=== PATIENT | female | born 1985 | race Hispanic/Latino ===

== ENCOUNTER 2017-08-13 19:56 | Emergency (ER) | payer OTHER ==
[2017-08-13 20:02] VITALS: TEMP 98.9; O2SAT 100
[2017-08-13] MEDS ORDERED: Sodium Chloride 0.9% 1,000 ML IV STA (20:13)
--- NOTE | 2017-08-13 20:16 | ED PDOC ---
Syncope/Near Syncope/Dizziness Time Seen by Provider: 08/13/17 20:06 Chief Complaint (Nursing): Dizziness/Lightheaded History Per: Patient History/Exam Limitations: no limitations Current Symptoms Are (Timing): Better Activity At Onset Of Symptoms: Sitting Associated Symptoms Preceding Syncopal Episode: Lightheadedness Seizure Or Post-ictal Symptoms: None Additional Complaint(s): Patient is 28 weeks , states she was at work, had not drank any water all day, was feeling lightheaded, dizzy, and had shortness of breath, called another employee on the phone to assist her, patient states she doesn't remember hanging up the phone and when her co-worker found her, her head was down on the table and stated that she passed out for 10 seconds. Denies chest pain, states SOB is better compared to earlier. STates she feels "tired". No fevers or recent illnesses, states unremarkable but that she failed her glucose tolerance test. No abdominal pain currently, no vaginal bleeding or discharge. Past Medical History Reviewed: Historical Data, Nursing Documentation, Vital Signs Vital Signs: Last Vital Signs Temp 98.9 F 08/13/17 19:59 Pulse 101 H 08/13/17 19:59 Resp 16 08/13/17 19:59 BP 93/67 L 08/13/17 19:59 Pulse Ox 100 08/13/17 19:59 - Medical History PMH: No Chronic Diseases - Family History Family History: States: Unknown Family Hx - Allergies Allergies/Adverse Reactions: Allergies Allergy/AdvReac Type Severity Reaction Status Date / Time No Known Allergies Allergy Verified 08/13/17 20:02 Review of Systems ROS Statement: Except As Marked, All Systems Reviewed And Found Negative Respiratory: Positive for: Shortness of Breath Physical Exam - Reviewed Nursing Documentation Reviewed: Yes Vital Signs Reviewed: Yes - Physical Exam Appears: Positive for: Well, Non-toxic, No Acute Distress Head Exam: Positive for: ATRAUMATIC, NORMAL INSPECTION, NORMOCEPHALIC Skin: Positive for: Normal Color, Warm, DRY Eye Exam: Positive for: EOMI, Normal appearance, PERRL ENT: Positive for: Normal ENT Inspection Neck: Positive for: Normal, Painless ROM Cardiovascular/Chest: Positive for: Regular Rate, Rhythm Respiratory: Positive for: CNT, Normal Breath Sounds Gastrointestinal/Abdominal: Positive for: Normal Exam, Bowel Sounds, Soft, Other (Gravid uterus). Negative for: Tenderness Back: Positive for: Normal Inspection Extremity: Positive for: Normal ROM Neurologic/Psych: Positive for: Alert, Oriented - Laboratory Results Result Diagrams: 08/13/17 20:39 08/13/17 20:39 - ECG ECG Rhythm: Positive for: Normal QRS, Normal ST Segment, Sinus Rhythm O2 Sat by Pulse Oximetry: 100 Pulse Ox Interpretation: Normal Medical Decision Making Medical Decision MakinPM A/P: 28 wks with syncope -patient with mild hypotension and slight tachycardia, can be normal at this stage of preganancy, but given history of no water consumption today, patient likely dehydrated contributing to today's presentation -not concerned for PE -will check electrolytes, give IV bag -after re-eval, will send to L&D 945PM -Patient feeling better, vitals improved, tolerating PO -will treat for UTI, although asymptomatic -will send to L&D for further obstetric care Disposition - Clinical Impression Clinical Impression: Syncope - Disposition Referrals: Nahid Catalan MD [Primary Care Provider] - Gustavo Armenta MD [Staff Provider] - Disposition: Routine/Home Disposition Time: 21:53 Condition: STABLE Instructions: Syncope (Fainting) (DC) Forms: [employer] (Divehi)
[2017-08-13 20:52] LABS: SQUAMOUS EPITHIAL 17 /hpf (0-5); URINE BACTERIA MANY (<OCC); URINE BILIRUBIN NEGATIVE (NEGATIVE); URINE BLOOD NEGATIVE (NEGATIVE); URINE CLARITY CLOUDY (Clear); URINE COLOR AMBER (YELLOW); URINE GLUCOSE (UA) NEG (Normal); URINE LEUKOCYTE ESTERASE MOD Leu/uL (Negative); URINE PROTEIN 100 mg/dL (NEGATIVE); URINE UROBILINOGEN 0.2-1.0 mg/dL (0.2-1.0)
[2017-08-13 20:58] LABS: BLOOD UREA NITROGEN 8 mg/dl (7-17); CALCIUM 9.1 mg/dL (8.4-10.2); GFR AFRICAN-AMERICAN > 60; GFR NON-AFRICAN AMERICAN > 60
[2017-08-13 21:40] VITALS: RESP 18
[2017-08-13 22:56] LABS: BASO % 0.3 % (0.0-2.0); EOS % 0.4 % (0.0-4.0); HEMOGLOBIN 12.4 g/dL (12.0-16.0); LYMPH # 1.2 K/uL (1.0-4.3); LYMPH % 9.9 % (20.0-40.0); MEAN CELL VOLUME 96.8 fl (81.0-99.0); MEAN CORPUSCULAR HEMOGLOBIN 32.3 pg (27.0-31.0); MEAN CORPUSCULAR HGB CONC 33.4 g/dL (33.0-37.0); MEAN PLATELET VOLUME 8.9 fl (7.2-11.7); MONO % 7.8 % (0.0-10.0); NEUT # 10.1 K/uL (1.8-7.0); NEUT % 81.6 % (50.0-75.0); NRBC % 0.1 % (0.0-0.0); PLATELET COUNT 189 K/uL (130-400); RBC 3.83 Mil/uL (3.80-5.20); RED CELL DISTRIBUTION WIDTH 12.8 % (11.5-14.5); WHITE BLOOD COUNT 12.4 K/uL (4.8-10.8)
[2017-08-13 23:20] LABS: ANISOCYTOSIS SLIGHT; BANDS 2 % (0-2); EOSINOPHIL 1 % (0-7); LYMPHOCYTE 11 % (20-50); MONOCYTE 8 % (0-10); NEUTROPHIL 78 % (42-75); PLATELET ESTIMATE NORMAL (NORMAL); TOTAL CELLS COUNTED 100; TOXIC GRANULATION PRESENT
--- NOTE | 2017-08-13 23:26 | OBHP ---
Datetime: 08/13/2017 23:17 IP Adm Impression: , intrauterine ; No Active Labor IP Chief Complaint Other: For NST IP Admit Plan: Observation/Evaluation; Discharge home Admit Comment, IP Provider: Pt was sent here from the ER for NST after evaluation of a syncopal alden ck. Pt is 28.6wks and recieves PNC with Dr Armenta. She currently reports feeling well and feels good movements, denies VB or LOF. O: Afebrile Chest - clinically clear Abd: Soft, NT, BS - present TOCO - No uterine activity seen FHR: NST- Reactive. Pelvic - Defered. Assessment: IUP at 28 weeks NST - Reactive. Plan: D/C Home F/U with Dr Armenta within the week. Extremities - PN: Normal Abdomen - PN: Normal Back - PN: Normal Lungs - PN: Normal General - PN: Normal FHR - Baseline A Provider: 130 Membranes, Provider: Intact Gestation - Est Wks by US: 28.6 EGA AdmitDate IP: 29.0 Vital Signs Provider: Reviewed IP Chief Complaint: Other NICHD Variability Prov Fetus A: Moderate 6-25bpm NICHD Accel Fetus A IP Provider: 15X15 FHR Category Provider Fetus A: Category I NICHD Decel Fetus A IP Provider: None
[2017-08-14 03:47] VITALS: BP 93/59; PULSE 92
--- NOTE | 2017-08-16 14:42 | CARD ---
APPROVED REPORT EKG Measurement Heart [id number] <Conclusion> Normal sinus rhythm with sinus arrhythmia
== END 2017-08-13 23:44 | disposition home or self-care (01) ==
LOC: H.ER 19:56 → H.L&D 22:21 → H.ER 23:44
DX: R55 Syncope and collapse (principal)
CPT/HCPCS: 80048; 81003; 85025; 93005; 96360; 99285; J7030

== ENCOUNTER 2017-10-21 14:49 | Inpatient (IN) | payer OTHER ==
[2017-10-21 15:33] VITALS: BMI 33.0
[2017-10-21] MEDS ORDERED: cefOXitin IV 1 gm in Dextrose 1 GM/50 ML BAG IVPB ONE (15:33)
[2017-10-21] MEDS ORDERED: Oxytocin 30 UNIT 30 UNITS/500 ML BAG IV ONE (15:35)
[2017-10-21] MEDS ORDERED: OXYTOCIN/0.9 % NS 20 UNIT/1,000 ML BAG IV SCH ×3 (15:45→23:55)
[2017-10-21] MEDS: Lactated Ringer's 1,000 ML IV ONE ×3 (16:00→18:45)
[2017-10-21] MEDS ORDERED: Oxytocin 20 units in LR 2,000 ML IV ONE (17:13)
[2017-10-21 17:29] LABS: BASO % 0.4 % (0.0-2.0); EOS # 0.1 K/uL (0.0-0.7); EOS % 0.8 % (0.0-4.0); HEMOGLOBIN 12.8 g/dL (12.0-16.0); LYMPH # 2.4 K/uL (1.0-4.3); LYMPH % 26.2 % (20.0-40.0); MEAN CELL VOLUME 96.1 fl (81.0-99.0); MEAN CORPUSCULAR HEMOGLOBIN 32.7 pg (27.0-31.0); MEAN PLATELET VOLUME 8.9 fl (7.2-11.7); MONO # 1.1 K/uL (0.0-0.8); MONO % 11.9 % (0.0-10.0); NEUT # 5.5 K/uL (1.8-7.0); NEUT % 60.7 % (50.0-75.0); RBC 3.93 Mil/uL (3.80-5.20); RED CELL DISTRIBUTION WIDTH 14.6 % (11.5-14.5); WHITE BLOOD COUNT 9.1 K/uL (4.8-10.8)
--- NOTE | 2017-10-21 17:52 | OBADHP ---
Datetime: 10/21/2017 17:44 IP Chief Complaint Other: prev C/S with cervical changes/Dec FM IP Adm Impression Other: Prev C/S in early labor with cervical changes and dec fm Admit Comment, IP Provider: declined BTL at this time Informed consent obtained Extremities - PN: Normal Abdomen - PN: Abnormal Back - PN: Normal Breast - PN: Normal Lungs - PN: Normal Thyroid - PN: Normal Neurologic - PN: Normal HEENT - PN: Normal General - PN: Normal FHR - Baseline A Provider: 150 Membranes, Provider: Intact Contraction Comments Provider: irreg Comments, ACOG Physical Exam: Abd gravid NT but UC palpable fundus at term Ext no calf tenderness Gestation - Est Wks by US: 38+ IP Hx Assessment: The History has been Reviewed and is Current IP Chief Complaint: Uterine contractions; Other NICHD Variability Prov Fetus A: Moderate 6-25bpm NICHD Accel Fetus A IP Provider: 10X10 Dilatation, Provider: 1cm Effacement, Provider: 50 DTRs - PN: Normal EGA AdmitDate IP: 38.5 IP Adm Impression: Term, intrauterine IP Admit Plan: Admit to unit; Initiate Section protocol Datetime: 08/13/2017 23:17 Vital Signs Provider: Reviewed FHR Category Provider Fetus A: Category I NICHD Decel Fetus A IP Provider: None
[2017-10-21] MEDS ORDERED: Morphine 1 mg/ml preservative-free Inj(Duramorph) ONE (18:27)
[2017-10-21] MEDS ORDERED: Sodium Chloride 0.9% 10 ML IV ONE (18:27)
[2017-10-21] MEDS ORDERED: ePHEDrine 50 mg/ml Inj ONE (18:27)
[2017-10-21] MEDS ORDERED: Oxycodone/Acetaminophen 5/325 mg Tab PO PRN ×2 (20:06→20:25)
[2017-10-21] MEDS ORDERED: DiphenhydrAMINE 50 mg/ml Inj IVP PRN ×2 (20:06→23:55)
[2017-10-21] MEDS ORDERED: cefOXitin Sodium 1 GM in Sodium Chloride 0.9% 100 ML IVPB SCH (20:30)
--- NOTE | 2017-10-21 20:35 | OBDS ---
DELIVERY PERSONNEL Delivery Doctor: Andrez Armenta MD Scrub Nurse: Percy LOMAS Anesthesiologist: Onelia Brooke MD MATERNAL INFORMATION Maternal Complications: None Provider Comments: see dictated surgeons note LABOR SUMMARY EDC: 10/30/2017 00:00 No. Babies in Womb: 1 LABOR INFORMATION Reason for Induction: Not Applicable Onset of Labor: 10/21/2017 00:00 Group B Beta Strep: Negative Steroids Given: None Reason Steroids Not Administered: Not Applicable VAGINAL DELIVERY Episiotomy: None Laceration Extension: N/A Laceration Type: None Laceration Repair: Not Applicable Sponge Count Correct: Yes Sharps Count Correct: Yes Count Comment: count correct x3 CSECTION DELIVERY Primary Indication: > 2 Previous CSections Other Primary Indication: early labor with cervical changes Secondary Indication: decreased movements CSection Incision: Lower Uterine Transverse Uterine Closure: Double-layer closure
[2017-10-21] MEDS ORDERED: cefOXitin IV 1 gm in Dextrose 1 GM/50 ML BAG IVPB SCH (21:00)
[2017-10-22] MEDS: cefOXitin IV 1 gm in Dextrose 1 GM/50 ML BAG IVPB SCH ×2 (03:13→11:44)
[2017-10-22 08:22] LABS: HEMOGLOBIN 12.4 g/dL (12.0-16.0); MEAN CELL VOLUME 95.7 fl (81.0-99.0); MEAN CORPUSCULAR HEMOGLOBIN 32.3 pg (27.0-31.0); MEAN CORPUSCULAR HGB CONC 33.7 g/dL (33.0-37.0); RBC 3.85 Mil/uL (3.80-5.20); RED CELL DISTRIBUTION WIDTH 14.4 % (11.5-14.5); WHITE BLOOD COUNT 12.1 K/uL (4.8-10.8)
[2017-10-22] MEDS: Multivitamin With Minerals Tab PO SCH (08:45)
[2017-10-22] MEDS: Oxycodone/Acetaminophen 5/325 mg Tab PO PRN ×4 (08:47→23:05)
[2017-10-22] MEDS ORDERED: Multivitamin With Minerals Tab PO SCH (09:00)
--- NOTE | 2017-10-22 10:34 | OBPPN ---
Datetime: 10/22/2017 10:30 PP Pain Prov: Within normal limits PP Pain Prov comment: no SOB,chest or leg pains PP Nausea Prov: Denies PP Flatus Prov: No PP BM Prov: No PP Breasts Prov: Normal PP Lungs Prov: Normal PP Abdomen/Uterus Prov: Abnormal PP Lochia Prov: Normal PP Vulva/Perineum Prov: Normal PP CVA Tenderness Prov: Normal PP Extremities Prov: Normal PP C/S Incision Prov: Normal PP Progress Prov: Normal PP Comments Phys Exam Prov: breast NE, NT; Abd soft ND depressible fundus firm at umb Dressing intac t no sign of active bleeding ext no calf tenderness PP Impression Prov: Normal progression PP Plan Prov: Continue present management PP Progress Note Prov: CBC stable, increase diet as tolerated OOB and ambulation Continue PO care IP PP Procedures: None Vital Signs Provider PP: Reviewed
[2017-10-23] MEDS ORDERED: cefOXitin IV 1 gm in Dextrose 1 GM/50 ML BAG IVPB SCH (01:00)
[2017-10-23] MEDS: Oxycodone/Acetaminophen 5/325 mg Tab PO PRN ×5 (03:38→23:53)
[2017-10-23] MEDS: Multivitamin With Minerals Tab PO SCH (08:11)
--- NOTE | 2017-10-23 14:49 | OBPPN ---
Datetime: 10/23/2017 14:46 PP Pain Prov: Within normal limits PP Nausea Prov: Denies PP Flatus Prov: Yes PP BM Prov: No PP Breasts Prov: Normal PP Heart Prov: Normal PP Lungs Prov: Normal PP Abdomen/Uterus Prov: Normal PP Lochia Prov: Normal PP Vulva/Perineum Prov: Normal PP CVA Tenderness Prov: Normal PP Extremities Prov: Normal PP C/S Incision Prov: Normal PP Progress Prov: Normal PP Impression Prov: Normal progression PP Plan Prov: Continue present management PP Progress Note Prov: stable pod 2 continue present care follow platelets action,incision healing w ell IP PP Procedures: None Vital Signs Provider PP: Reviewed; Within Normal Limits
--- NOTE | 2017-10-23 22:15 | OP ---
Copied To: Gustavo Armenta MD Attending MD: Gustavo Armenta MD PROCEDURE DATE: 10/21/2017 PREOPERATIVE DIAGNOSES: 1. at term. 2. Previous section x2 in early labor with cervical changes. 3. Decreased movement. POSTOPERATIVE DIAGNOSES: 1. at term. 2. Previous section x2 in early labor with cervical changes. 3. Decreased movement. PROCEDURE PERFORMED: Repeat low-transverse segment section. SURGEON: Gustavo Armenta MD ASSISTANTS: Yared Garcia MD and Dr. Galvan ANESTHESIA USED: Spinal. ANESTHESIA ADMINISTERED BY: Sunny Brooke MD ESTIMATED BLOOD LOSS: 800 mL. DRAINS USED: None. REPLACEMENT USED: None. FINDINGS: 1. Delivered living baby girl. Baby appears term. Baby cried spontaneously. Osteopathy Doctor in attendance. Apgars score of 9 and 9. 2. Amniotic fluid clear. 3. Placenta complete and intact. 4. Both tubes and ovaries appeared grossly within normal limits to inspection bilaterally. DESCRIPTION OF PROCEDURE: The patient was taken to the operating room and placed on the operating table in a supine position. Following induction of spinal anesthesia, the patient was then replaced in a supine position. A Ko catheter was then inserted into the bladder and was draining clear fluid. At this time, Venodyne boots were applied to both legs and the abdomen was then draped and prepped in the usual standard manner. Anesthesia was tested and found to be well secured, and following this, an incision was then made along the edges of previous incision two fingerbreadths above the symphysis pubis. The incision was then extended down to the subcutaneous tissue also using sharp dissection. Hemostasis was obtained by means of electrocoagulation. Fascia was then identified, was then entered in midline. Incision in the fascia was then extended laterally on each direction. Rectus muscle was then identified, was then split at the midline exposing the peritoneum. Peritoneal layer was then picked up using two Ledy clamps, retracted superiorly, and then entered using sharp dissection. The incision on the peritoneum was then extended superiorly and inferiorly under direct visualization. At this time, we then proceeded to identify the bladder which was then retracted inferiorly using a Karel retractor. The low-transverse segment of the uterus was then identified and the visceral peritoneum covering this area was then entered using sharp dissection. Using a blunt dissection, a bladder flap was then created and retracted inferiorly using the same Jackson retractor. An incision was then made in the low-transverse segment of the uterus. Upon entering the uterine cavity, clear fluid noted to be present. Following this, we then proceeded to extend the incision laterally on each directions using bandage scissors. Using a manual scooping procedure, living baby girl was then delivered. The baby appeared term, the baby cried spontaneously. The umbilicus was doubly clamped, cut, and the baby was handed to the pediatric personnel, who was standing by. Samples of cord blood were then obtained and the placenta was then delivered complete and intact. Uterus was then exteriorized to provide better visualization and the uterine cavity was then cleaned using moist lap pad and the uterus massaged and contracted well. Edges of the uterine incision was then secured using multiple T clamps and the uterine incision was then approximated using 0 Vicryl suture in a continuous interlocking manner. A second layer was also applied using 0 Vicryl suture in a continuous manner. At this time, we then proceeded to approximate the bladder flap using 2-0 Vicryl in a continuous manner. Hemostasis was checked and found to be well secured. Both tubes and ovaries were then inspected and found to be grossly within normal limits to inspection bilaterally. Following this, we then proceeded to clean the pelvic cavity using saline solution and the uterus was then allowed to retract back into its original position. All operative areas checked, hemostatically secure, and the peritoneum was then closed using 0 Vicryl suture in a continuous manner. Rectus muscle was also approximated in the midline using 0 Vicryl suture in a continuous manner. Fascia was then identified, was then approximated using 1 Vicryl suture in a continuous manner. Fascia was then checked and found to be free of defect. Subcutaneous tissue was then irrigated using saline solution and approximated using several interrupted 2-0 plain sutures. The skin was then approximated using a 3-0 Prolene in a subcuticular fashion. Steri-Strips were then applied. Clear fluid noted to be present in the Ko bag at this time. Sponge, instrument, and needle counts were correct x 3. Patient tolerated the procedure well. There were no complications. She was transferred to the recovery room in satisfactory condition. Gustavo Armenta MD [facility] # [id number] MAC
[2017-10-24] MEDS: Oxycodone/Acetaminophen 5/325 mg Tab PO PRN (07:52)
[2017-10-24] MEDS: Multivitamin With Minerals Tab PO SCH (08:10)
--- NOTE | 2017-10-24 11:45 | OBDCSUM ---
Datetime: 10/24/2017 11:43 Discharged to, Provider: Home Follow up at, Provider: Dr Armenta Disch Instr Activity: Bedrest; May be up to bathroom; May be up for meals; May Shower Disch Instr Diet: Regular Discharge Instructions, Provider: Routine instructions given Discharge Diagnosis, Provider: Term Delivered Discharge Time: 10/24/2017 11:43 Follow up in weeks, Provider: 1wk Disch Referrals: None Contraception discussed, Prov: Yes Disch Activity Restrictions: No exercising; No lifting; No driving; Minimize walking; Minimize stair -climbing; No sexual activity; Nothing in vagina - [place], tampons, douche Discharge Comment, Provider: rx for Percocet and continiue PNC vit Contraception after Delivery: Undecided
[2017-10-24 19:14] VITALS: BP 103/73; PULSE 75; RESP 19; TEMP 98.9; O2SAT 99
== END 2017-10-24 14:35 | disposition home or self-care (01) | DRG 766 ==
LOC: H.L&D 16:08 → H.OB/GYN 10-22
PROVIDERS: ADMIT Specialist; ATTEND Specialist
PROC: 10D00Z1 Extraction of Products of Conception, Low, Open Approach (ICD-10-PCS; principal; 2017-10-21)
PROC: 4A1HXCZ Monitoring of Products of Conception, Cardiac Rate, External Approach (ICD-10-PCS; 2017-10-21)
DX: O34.211 Maternal care for low transverse scar from previous cesarean delivery (principal); Z37.0 Single live birth; O36.8190 Decreased fetal movements, unspecified trimester, not applicable or unspecified; N85.8 Other specified noninflammatory disorders of uterus; Z3A.38 38 weeks gestation of pregnancy